=== PATIENT | female | born 1985 | race Two or more races ===

== ENCOUNTER 2017-07-04 19:27 | Inpatient (IN) | payer MEDICAID ==
[~2017-07-04] VITALS: Ht 152.4 cm; Wt 65.8 kg
[2017-07-04 19:30] VITALS: BP 108/65
[2017-07-04] MEDS: Acetaminophen 500mg (ES) tab ORAL ONE ×2 (19:49→19:53)
[2017-07-04 19:56] LABS: HEMATOCRIT 45.8 % (37.0-47.0); HEMOGLOBIN 15.1 G/DL (12.0-16.0); MEAN CORPUSCULAR VOLUME 87 FL (80-99); PLATELET COUNT 477 K/UL (150-450); RED BLOOD COUNT 5.29 M/UL (4.20-5.40); RED CELL DISTRIBUTION WIDTH 12.1 % (11.6-14.8)
[2017-07-04 20:00] LABS: WHITE BLOOD COUNT 25.5 K/UL (4.8-10.8)
[2017-07-04] MEDS ORDERED: Ketorolac 30mg Inj IV ONE (20:00)
[2017-07-04 20:07] LABS: ANION GAP 14 mmol/L (5-15); BLOOD UREA NITROGEN 9 mg/dL (7-18); CALCIUM 9.4 MG/DL (8.5-10.1); CARBON DIOXIDE 24 MMOL/L (21-32); CHLORIDE 98 MMOL/L (98-107); CREATININE 0.7 MG/DL (0.55-1.30); POTASSIUM 3.7 MMOL/L (3.5-5.1); SODIUM 136 MMOL/L (136-145)
[2017-07-04 20:12] LABS: ALANINE AMINOTRANSFERASE 26 U/L (12-78); ALBUMIN 4.2 G/DL (3.4-5.0); ALBUMIN/GLOBULIN RATIO 0.9 (1.0-2.7); ALKALINE PHOSPHATASE 92 U/L (46-116); ASPARTATE AMINO TRANSFERASE 12 U/L (15-37); BILIRUBIN,TOTAL 0.5 MG/DL (0.2-1.0)
[2017-07-04 20:30] VITALS: BP_SYST 105; BP_SYST 110; BP_DIAS 64; BP_DIAS 67
[2017-07-04 21:05] LABS: APPEARANCE,URINE CLEAR; BILIRUBIN, URINE NEGATIVE (NEGATIVE); COLOR,URINE PALE YELLOW; GLUCOSE, URINE (UA) NEGATIVE (NEGATIVE); KETONES,URINE 2+ (NEGATIVE); LEUKOCYTE ESTERASE ,URINE 1+ (NEGATIVE); NITRITE,URINE NEGATIVE (NEGATIVE); PH,URINE 9 (4.5-8.0); PROTEIN,URINE 1+ (NEGATIVE); UROBILINOGEN,URINE NORMAL MG/DL (0.0-1.0)
[2017-07-04 21:11] VITALS: BP 105/64
[2017-07-04] MEDS ORDERED: Azithromycin 500mg Inj IV ONE (21:21)
[2017-07-04] MEDS ORDERED: Acetaminophen 500mg (ES) tab ORAL ONE (21:30)
[2017-07-04] MEDS ORDERED: cefTRIAXone 1 GM in NS 55 ML IVPB ONE (21:30)
[2017-07-04] MEDS ORDERED: Azithromycin 500 MG in D5W 275 ML IVPB ONE (21:30)
--- NOTE | 2017-07-04 21:43 | Emergency Room Report ---
History of Present Illness General Chief Complaint: Flu Like Symptoms Source: Patient Present Illness HPI 31-year-old female presents to ED for evaluation. Patient brought in by EMS for weakness, passing out. Afebrile. States that she's been sick since yesterday. Sore throat, cough. Was seen by PMD today and was prescribed some medications. Pain is throbbing, 8 out of 10, nonradiating. Patient feels nauseous and has vomited several times. Denies chest pain or shortness of breath. Eyes cough. No other aggravating relieving factors. Denies any other associated symptoms Allergies: Coded Allergies: No Known Allergies (Unverified , 07/04/17) Patient History Past Medical History: none Past Surgical History: none Pertinent Family History: none Social History: Denies: smoking, alcohol use, drug use Last Menstrual Period: "last week" Now: No Immunizations: UTD Reviewed Nursing Documentation: PMH: Agreed; PSxH: Agreed Nursing Documentation-PMH Past Medical History: No Stated History Review of Systems All Other Systems: negative except mentioned in HPI Physical Exam Vital Signs Date Time Temp Pulse Resp B/P (MAP) Pulse Ox O2 Delivery O2 Flow Rate FiO2 07/04/17 19:20 101.3 112 22 110/67 98 Room Air 101.3 Sp02 EP Interpretation: reviewed, normal General Appearance: no apparent distress, alert, GCS 15, non-toxic Head: normocephalic, atraumatic Eyes: bilateral eye normal inspection, bilateral eye PERRL ENT: hearing grossly normal, normal voice, pharyngeal erythema, tonsillar exudate Neck: full range of motion, supple/symm/no masses Respiratory: chest non-tender, lungs clear, normal breath sounds, speaking full sentences Cardiovascular #1: regular rate, rhythm, no edema Cardiovascular #2: 2+ carotid (R), 2+ carotid (L), 2+ radial (R), 2+ radial (L) , 2+ dorsalis pedis (R), 2+ dorsalis pedis (L) Gastrointestinal: normal bowel sounds, non tender, soft, non-distended, no guarding, no rebound Rectal: deferred Genitourinary: normal inspection, no CVA tenderness Musculoskeletal: back normal, gait/station normal, normal range of motion, non- tender Neurologic: alert, oriented x3, responsive, motor strength/tone normal, sensory intact, speech normal Psychiatric: judgement/insight normal, memory normal, mood/affect normal, no suicidal/homicidal ideation Reflexes: 3+ bicep (R), 3+ bicep (L), 3+ tricep (R), 3+ tricep (L), 3+ knee (R) , 3+ knee (L) Skin: normal color, no rash, warm/dry, well hydrated Lymphatic: no adenopathy Medical Decision Making Diagnostic Impression: Primary Impression: Pharyngitis Qualified Codes: J02.9 - Acute pharyngitis, unspecified Additional Impressions: Weakness Sepsis Qualified Codes: A41.9 - Sepsis, unspecified organism ER Course Hospital Course 31-year-old female presenting to ED with generalized weakness, vomiting, fever Differential diagnoses include: Pneumonia, UTI, sepsis, dehydration, AL/ unstable angina Clinical course Patient placed on stretcher. On conveyor monitor with tachycardia. After initial history and physical, I ordered labs, IV fluids, chest x-ray, blood cultures, UA. Labs - electrolytes ok, marked leukocytosis, lactic 3 CXR - no acute process Influenza negative Source is likely the pharyngitis. Abx given. given 30cc/kg fluid bolus. Case discussed with Dr Sears and they agreed to admit patient to their service for further care and support I feel this is a highly complex case requiring extensive working including EKG/ Rhythm strip, Xray/CT/US, Blood/urine lab work, repeat exams while in ED, and administration of strong opiates/narcotics for pain control, admission to hospital or close patient follow up. Diagnosis - pharyngitis, sepsis, weakness Patient admitted to floor in serious condition Labs Test 07/04/17 19:35 07/04/17 20:50 White Blood Count 25.5 K/UL (4.8-10.8) Red Blood Count 5.29 M/UL (4.20-5.40) Hemoglobin 15.1 G/DL (12.0-16.0) Hematocrit 45.8 % (37.0-47.0) Mean Corpuscular Volume 87 FL (80-99) Mean Corpuscular Hemoglobin 28.6 PG (27.0-31.0) Mean Corpuscular Hemoglobin Concent 33.0 G/DL (32.0-36.0) Red Cell Distribution Width 12.1 % (11.6-14.8) Platelet Count 477 K/UL (150-450) Mean Platelet Volume 5.7 FL (6.5-10.1) Neutrophils (%) (Auto) % (45.0-75.0) Lymphocytes (%) (Auto) % (20.0-45.0) Monocytes (%) (Auto) % (1.0-10.0) Eosinophils (%) (Auto) % (0.0-3.0) Basophils (%) (Auto) % (0.0-2.0) Differential Total Cells Counted 100 Neutrophils % (Manual) 80 % (45-75) Lymphocytes % (Manual) 9 % (20-45) Monocytes % (Manual) 7 % (1-10) Eosinophils % (Manual) 0 % (0-3) Basophils % (Manual) 0 % (0-2) Band Neutrophils 4 % (0-8) Platelet Estimate Adequate Platelet Morphology Normal Red Blood Cell Morphology Normal Sodium Level 136 MMOL/L (136-145) Potassium Level 3.7 MMOL/L (3.5-5.1) Chloride Level 98 MMOL/L (98-107) Carbon Dioxide Level 24 MMOL/L (21-32) Anion Gap 14 mmol/L (5-15) Blood Urea Nitrogen 9 mg/dL (7-18) Creatinine 0.7 MG/DL (0.55-1.30) Estimat Glomerular Filtration Rate > 60 mL/min (>60) Glucose Level 127 MG/DL (74-106) Lactic Acid Level 3.00 mmol/L (0.66-2.22) 2.10 mmol/L (0.66-2.22) Calcium Level 9.4 MG/DL (8.5-10.1) Total Bilirubin 0.5 MG/DL (0.2-1.0) Aspartate Amino Transf (AST/SGOT) 12 U/L (15-37) Alanine Aminotransferase (ALT/SGPT) 26 U/L (12-78) Alkaline Phosphatase 92 U/L (46-116) Total Protein 8.8 G/DL (6.4-8.2) Albumin 4.2 G/DL (3.4-5.0) Globulin 4.6 g/dL Albumin/Globulin Ratio 0.9 (1.0-2.7) Urine Color Pale yellow Urine Appearance Clear Urine pH 9 (4.5-8.0) Urine Specific [place] 1.015 (1.005-1.035) Urine Protein 1+ (NEGATIVE) Urine Glucose (UA) Negative (NEGATIVE) Urine Ketones 2+ (NEGATIVE) Urine Occult Blood Negative (NEGATIVE) Urine Nitrite Negative (NEGATIVE) Urine Bilirubin Negative (NEGATIVE) Urine Urobilinogen Normal MG/DL (0.0-1.0) Urine Leukocyte Esterase 1+ (NEGATIVE) Urine RBC 2-4 /HPF (0 - 2) Urine WBC 5-10 /HPF (0 - 2) Urine Squamous Epithelial Cells Many /LPF (NONE/OCC) Urine Bacteria Few /HPF (NONE) Urine HCG, Qualitative Negative (NEGATIVE) Chest X-Ray Diagnostic Results Chest X-Ray Diagnostic Results : Chest X-Ray Ordered: Yes # of Views/Limited/Complete: 1 View Indication: Other - cough EP Interpretation: Yes Interpretation: no consolidation, no effusion, no pneumothorax, no acute cardiopulmonary disease Impression: No acute disease Electronically Signed by: Electronically signed by Alfonso Ba MD Last Vital Signs Date Time Temp Pulse Resp B/P (MAP) Pulse Ox O2 Delivery O2 Flow Rate FiO2 07/04/17 21:35 102.9 07/04/17 21:11 112 26 105/64 98 Room Air Status: improved Disposition: ADMITTED INPATIENT Condition: Serious Referrals: [facility],REFERRING (PCP) Alfonso Ba MD Jul 04, 2017 21:43
[2017-07-04 22:10] VITALS: BP 112/63
[2017-07-04 23:10] VITALS: BP 107/61
[2017-07-04 23:45] VITALS: BP 103/62
[2017-07-05] VITALS: BP 96/58
[2017-07-05] MEDS ORDERED: TAMIFLU75 MG ORAL (03:56)
[2017-07-05] MEDS ORDERED: PHENERGAN SUPP25 MG RECTAL (03:56)
[2017-07-05 04:00] VITALS: BP 120/80
[2017-07-05 08:00] VITALS: BP 120/67
--- NOTE | 2017-07-05 11:06 | Diagnostic Imaging Report ---
Indication: Cough, fever Technique: One view of the chest Comparison: none Findings: Lungs and pleural spaces are clear. Heart size is normal Impression: No acute process
[2017-07-05 11:41] VITALS: BP 115/55
[2017-07-05] MEDS ORDERED: Vancomycin 1250mg/D5W 250ml IVPB ONE (12:30)
--- NOTE | 2017-07-05 12:45 | History and Physical Report ---
DATE OF ADMISSION: 07/04/2017 NOTE: POOR AUDIO HISTORY OF PRESENT ILLNESS: The patient is a 31-year-old female recurrent abdominal pain and nausea and vomiting since this evening. The patient multiple times. She has had no fever or chills. The patient was taken to the emergency room where she had a fever about 100.6 degrees. The patient was given IV fluid, IV antibiotic, and Tylenol; was admitted to medical service; and is currently sleeping. is at bedside. PAST MEDICAL HISTORY: None. ALLERGIES: None. 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 test is negative. PHYSICAL EXAMINATION: VITAL SIGNS: Blood pressure 102/70, pulse 60s, and respirations 18. No fever. SKIN: Looks like little pallor. CHEST: Bilaterally clear. CARDIOVASCULAR: Regular rhythm. Tachycardia. ABDOMEN: Soft. Positive bowel sounds. EXTREMITIES: CCE. NEUROLOGICAL: The patient has no focal deficits. GENITOURINARY: Deferred. LABORATORY DATA: White counts are high. Urine shows positive leukocyte esterase and 4-6 wbc. ASSESSMENT: 1. Recurrent nausea and vomiting. 2. Urinary tract infection. 3. Dehydration. PLAN: We will admit her on the medical floor. Start IV fluid and IV antibiotics. Check cultures and discussed with . Also give her Tylenol for pain. Lui Sears M.D. DR: MUSA JOB#: [id number] CC:
[2017-07-05] MEDS: traMADol 50mg tab ORAL PRN ×2 (14:01→18:32)
--- NOTE | 2017-07-05 14:06 | Infectious Diseases Prog Note ---
Assessment/Plan Problems: (1) Acute bacterial tonsillitis Assessment & Plan: on the right with whitish exudate , and possible lois tonsillar abscess, will start vancomycin and zosyn empiric coverage , obtain swab culture from the right tonsil exudate, and obtain CT neck to confirm (2) Peritonsillar abscess Assessment & Plan: possibly due to the above, jaya start wide spectrum antibiotics with vancomycin and zosyn and order CT neck for further evaluation (3) Sepsis Assessment & Plan: due to the above , will send blood culture and start wide spectrum antibiotics pending cultures results . Subjective Allergies: Coded Allergies: No Known Allergies (Unverified , 07/04/17) Objective Vital Signs Last 24 Hour Vital Signs Date Time Temp Pulse Resp B/P (MAP) Pulse Ox O2 Delivery O2 Flow Rate FiO2 07/05/17 11:41 99.1 98 18 115/55 98 Room Air 99.1 07/05/17 10:17 102.7 07/05/17 09:18 102.7 07/05/17 08:00 98.4 110 18 120/67 100 Room Air 98.4 07/05/17 04:00 101.0 117 18 120/80 97 Room Air 101.0 07/05/17 00:00 98.1 92 24 103/62 97 Room Air 98.1 07/05/17 00:00 97.4 99 18 96/58 97 Room Air 97.4 07/04/17 23:45 98.1 92 24 103/62 97 Room Air 98.1 07/04/17 23:10 99.1 99 22 107/61 99 Room Air 99.1 07/04/17 22:34 99.8 07/04/17 22:10 99.8 102 22 112/63 98 Room Air 99.8 07/04/17 21:35 102.9 07/04/17 21:11 102.9 112 26 105/64 98 Room Air 102.9 07/04/17 20:39 102.9 07/04/17 20:30 112 22 Room Air 07/04/17 20:30 100.9 118 22 105/64 98 Room Air 100.9 07/04/17 19:59 100.1 07/04/17 19:30 100.1 112 26 108/65 97 Room Air 100.1 07/04/17 19:20 101.3 112 22 110/67 98 Room Air 101.3 Height (Feet): 5 Height (Inches): 0.00 Weight (Pounds): 145 Microbiology Date/Time Source Procedure Growth Status 07/04/17 19:35 Nasal Nares Influenza Types A,B Antigen (SALTY) - Final Complete Laboratory Tests Test 07/04/17 19:35 07/04/17 20:50 White Blood Count 25.5 K/UL (4.8-10.8) *H Red Blood Count 5.29 M/UL (4.20-5.40) Hemoglobin 15.1 G/DL (12.0-16.0) Hematocrit 45.8 % (37.0-47.0) Mean Corpuscular Volume 87 FL (80-99) Mean Corpuscular Hemoglobin 28.6 PG (27.0-31.0) Mean Corpuscular Hemoglobin Concent 33.0 G/DL (32.0-36.0) Red Cell Distribution Width 12.1 % (11.6-14.8) Platelet Count 477 K/UL (150-450) H Mean Platelet Volume 5.7 FL (6.5-10.1) L Neutrophils (%) (Auto) % (45.0-75.0) Lymphocytes (%) (Auto) % (20.0-45.0) Monocytes (%) (Auto) % (1.0-10.0) Eosinophils (%) (Auto) % (0.0-3.0) Basophils (%) (Auto) % (0.0-2.0) Differential Total Cells Counted 100 Neutrophils % (Manual) 80 % (45-75) H Lymphocytes % (Manual) 9 % (20-45) L Monocytes % (Manual) 7 % (1-10) Eosinophils % (Manual) 0 % (0-3) Basophils % (Manual) 0 % (0-2) Band Neutrophils 4 % (0-8) Platelet Estimate Adequate Platelet Morphology Normal Red Blood Cell Morphology Normal Sodium Level 136 MMOL/L (136-145) Potassium Level 3.7 MMOL/L (3.5-5.1) Chloride Level 98 MMOL/L (98-107) Carbon Dioxide Level 24 MMOL/L (21-32) Anion Gap 14 mmol/L (5-15) Blood Urea Nitrogen 9 mg/dL (7-18) Creatinine 0.7 MG/DL (0.55-1.30) Estimat Glomerular Filtration Rate > 60 mL/min (>60) Glucose Level 127 MG/DL (74-106) H Lactic Acid Level 3.00 mmol/L (0.66-2.22) H 2.10 mmol/L (0.66-2.22) Calcium Level 9.4 MG/DL (8.5-10.1) Total Bilirubin 0.5 MG/DL (0.2-1.0) Aspartate Amino Transf (AST/SGOT) 12 U/L (15-37) L Alanine Aminotransferase (ALT/SGPT) 26 U/L (12-78) Alkaline Phosphatase 92 U/L (46-116) Total Protein 8.8 G/DL (6.4-8.2) H Albumin 4.2 G/DL (3.4-5.0) Globulin 4.6 g/dL Albumin/Globulin Ratio 0.9 (1.0-2.7) L Monoscreen Pending Urine Color Pale yellow Urine Appearance Clear Urine pH 9 (4.5-8.0) Urine Specific [place] 1.015 (1.005-1.035) Urine Protein 1+ (NEGATIVE) H Urine Glucose (UA) Negative (NEGATIVE) Urine Ketones 2+ (NEGATIVE) H Urine Occult Blood Negative (NEGATIVE) Urine Nitrite Negative (NEGATIVE) Urine Bilirubin Negative (NEGATIVE) Urine Urobilinogen Normal MG/DL (0.0-1.0) Urine Leukocyte Esterase 1+ (NEGATIVE) H Urine RBC 2-4 /HPF (0 - 2) H Urine WBC 5-10 /HPF (0 - 2) H Urine Squamous Epithelial Cells Many /LPF (NONE/OCC) H Urine Bacteria Few /HPF (NONE) Urine HCG, Qualitative Negative (NEGATIVE) Current Medications Medications (Trade) Dose Ordered Sig/Jannet Route PRN Reason Start Time Stop Time Status Last Admin Dose Admin Acetaminophen (Tylenol) 650 mg Q4H PRN ORAL Mild Pain/Temp > 100.5 07/05/17 00:15 08/04/17 00:14 07/05/17 09:18 Ondansetron HCl (Zofran) 4 mg Q6H PRN IVP Nausea & Vomiting 07/05/17 00:15 08/04/17 00:14 07/05/17 09:12 Piperacillin Sod/ Tazobactam Sod 3.375 gm/Dextrose 110 ml @ 27.5 mls/hr EVERY 8 HOURS IVPB 07/05/17 14:00 07/10/17 13:59 Sodium Chloride 1,000 ml @ 75 mls/hr [id number] IV 07/05/17 00:15 08/04/17 00:14 07/05/17 00:56 Tramadol HCl (Ultram) 50 mg Q4H PRN ORAL Pain(Pain Scale 4-10) 07/05/17 13:45 07/12/17 13:44 07/05/17 14:01 Vancomycin HCl (Vanco rx to dose) 1 ea DAILYPRN PRN MISC Per rx protocol 07/05/17 11:30 08/04/17 11:29 Vancomycin HCl 1 gm/Dextrose 275 ml @ 183.708 mls/hr Q12H IVPB 07/05/17 23:00 07/10/17 22:59 Kannan Abdi M.D. Jul 05, 2017 14:06
[2017-07-05] MEDS: Piperacillin/Tazobactam 3.375 GM in D5W 110 ML IVPB SCH ×2 (15:32→21:53)
[2017-07-05 16:00] VITALS: BP 124/75
--- NOTE | 2017-07-05 16:20 | Diagnostic Imaging Report ---
Indication: Reason For Exam: ABSCESS Technique: IV administration nonionic contrast. Spiral acquisitions obtained through the Multiplanar reconstructions were generated. Total dose length product 579.54 mGycm. CTDIvol(s) 20.06 mGy. Radiation dose was minimized using automated exposure control Comparison: none Findings: The adenoids are prominent, symmetric. The tonsils are diffusely markedly hypertrophied, slightly larger on the right than on the left. No focal low attenuation to suggest abscess demonstrated. The nasopharynx and oropharynx are otherwise unremarkable. The hypopharynx is unremarkable. The larynx is unremarkable. The trachea and proximal bronchi are unremarkable. No prevertebral soft tissue swelling. Cervical nodes are numerous and prominent bilaterally, with the left jugulodigastric node measuring up to 3 cm long axis dimension and a right posterior triangle node likewise measuring up to 3 cm long axis dimension, as well as numerous smaller but quite prominent nodes in the anterior and posterior triangles. The salivary glands are unremarkable. No significant subcutaneous fat infiltration is demonstrated. There is mucosal thickening of the right maxillary sinus. The parapharyngeal spaces are symmetric and clear. There are multiple dental caries. The bones are intact. The thyroid is unremarkable. The included upper lungs are unremarkable. The upper mediastinum is unremarkable. The proximal esophagus is unremarkable. No axillary or supraclavicular mass or adenopathy demonstrated Impression: Diffusely prominent adenoids and tonsils, most likely reactive. Correlate with any history of active inflammation. Numerous nonspecific bilateral prominent numerous lymph nodes, a few of which reach size criteria for lymphadenopathy. Likewise most likely reactive in nature. Correlate with clinical findings No evidence of cervical abscess Right maxillary sinus disease Dental disease, with multiple dental caries The CT scanner at [facility] is accredited by the [employer] and the scans are performed using protocols designed to limit radiation exposure to as low as reasonably achievable to attain images of sufficient resolution adequate for diagnostic evaluation.
[2017-07-05 20:00] VITALS: BP 89/57
--- NOTE | 2017-07-05 21:15 | Consultation ---
DATE OF CONSULTATION: 07/05/2017 INFECTIOUS DISEASES CONSULTATION CONSULTING PHYSICIAN: Kannan Abdi M.D. REQUESTING PHYSICIAN: Bird Roman M.D. REASON FOR CONSULTATION: Sepsis, fever and leukocytosis with unclear source. Recommendation for antibiotics treatment and further evaluation. HISTORY OF PRESENT ILLNESS: The patient is a 31-year-old female with no significant past medical history who was brought into the emergency room at [facility] by her for weakness, fever and passing out. The patient has been sick with sore throat for the last couple of days. She was coughing, some phlegm. She was seen by primary care physician today and was given some medications, unclear whether she had antibiotics or not, but continued to have worsening symptom of throbbing pain in her throat and cough. She also had nausea and vomiting. No chest pain or shortness of breath. No recent travel or sick contact except her son who is a year and 3-month-old was sick recently and she became sick after he was recovered. In the emergency room, the patient had a chest x-ray, did not show any acute infiltrates. She had temperature of 101.3 degrees. The patient was started on levofloxacin and admitted to the hospital for further evaluation and management. She continued to spike fever up to 102 degrees. So, Infectious Disease consultation was requested for further evaluation and management. As of note, the patient is [place] speaker, could not provide history. History was mainly obtained by the nurse who translated at the bedside. PAST MEDICAL HISTORY: Negative. PAST SURGICAL HISTORY: Negative. MEDICATIONS: She is on levofloxacin. For the rest of her medications, please refer to MAR. ALLERGIES: No known drug allergy. FAMILY HISTORY: Negative for any recurrent infection or immunocompromised condition. 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 No recent drugs, tobacco, or alcohol. REVIEW OF SYSTEMS: A 14-point of system reviewed were all negative apart from the one I mentioned above in my History and Physical. PHYSICAL EXAMINATION: GENERAL: A young female, lying in bed, weak, lethargic, febrile, has been at the bedside. VITAL SIGNS: Temperature 102.7 degrees, pulse 98, respirations 18, blood pressure 115/55, and saturation 98% on room air. HEENT: Normocephalic and atraumatic. Pupils are reactive to light equally. Pale sclerae. Dry oral mucosa. Right enlarged erythematous tonsils with whitish exudate membrane. No oral ulcers. No thrush. NECK: Supple. No lymphadenopathy. CARDIOVASCULAR: She is tachycardic. S1 and S2 normal. No murmur or gallop. LUNGS: Clear bilaterally. No wheezing or rhonchi. Normal breathing efforts. ABDOMEN: Soft, nontender, and nondistended. Positive bowel sounds. No hepatosplenomegaly. No ascites. EXTREMITIES: No edema. No cyanosis. SKIN: No rash. No hives. No ulceration. LABORATORY AND DIAGNOSTIC DATA: Labs showed white count of 25.5, hemoglobin of 15.1, and platelet count of 477. BUN of 9 and creatinine of 0.7. AST of 12 and ALT of 26. Urinalysis showed +1 leukocyte esterase, wbc's 5 to 10, and many squamous cell. Microbiology, influenza screening A and B were both negative. Imaging, chest x-ray showed lungs and pleural spaces are clear. Heart size is normal, no acute process. ASSESSMENT AND RECOMMENDATION: 1. Acute bacterial tonsillitis with whitish exudate and possible peritonsillar abscess. We will start vancomycin and Zosyn empiric coverage for now. Obtain swab culture from the right tonsil and CT scan of the neck with contrast to rule out abscess. We will call ENT if needed. 2. Peritonsillar abscess, possibly due to the above. We will start wide-spectrum antibiotics and order CT neck with contrast for further evaluation. ENT consult will be recommended if there is any evidence of abscess. 3. Sepsis due to the above. We will send blood culture. Start vancomycin and Zosyn. Pending culture results. 4. UTI. We will send urine culture. The patient will be already on Zosyn. Thank you for the consult. ID will continue to follow. Please feel free to call with any questions. Kannan Abdi M.D. DR: VALDEZ JOB#: [id number] CC:
[2017-07-05] MEDS: Vancomycin 1gm/D5W 275ml IVPB SCH ×2 (23:35)
[2017-07-06] VITALS: BP 90/52
--- NOTE | 2017-07-06 02:16 | History and Physical Report ---
DATE OF ADMISSION: 07/04/2017 HISTORY OF PRESENT ILLNESS: The patient is a 31 years old female, came in last night for having abdominal pain, nausea, and vomiting, was found to have urinary tract infection. The patient had a fever of 100.7. ID consult was obtained. The patient currently is tolerating some diet. PAST MEDICAL HISTORY: None. ALLERGIES: NKA. MEDICATIONS: See the list. PHYSICAL EXAMINATION: GENERAL: This is a young female, who is currently awake, still feeling sick. VITAL SIGNS: Blood pressure is 130/70, pulse 60, respirations 18, no fever. SKIN: Good skin turgor. CHEST: Bilaterally clear. CARDIOVASCULAR: Regular rhythm. No gallop. No murmur. ABDOMEN: Soft. Mild tenderness. EXTREMITIES: CCE. ASSESSMENT: 1. Urinary tract infection. 2. Recurrent nausea and vomiting. 3. Dehydration. PLAN: 1. We will admit her on medical floor. 2. Continue IV antibiotics. 3. Continue Zofran. 4. Continue antibiotics. 5. ID consult. Lui Sears M.D. DR: Althea JOB#: [id number] CC:
[2017-07-06 04:00] VITALS: BP 92/63
[2017-07-06] MEDS: Piperacillin/Tazobactam 3.375 GM in D5W 110 ML IVPB SCH ×3 (05:30→23:38)
[2017-07-06] MEDS: traMADol 50mg tab ORAL PRN (06:36)
[2017-07-06 08:00] VITALS: BP 111/71
[2017-07-06] MEDS: Vancomycin 1gm/D5W 275ml IVPB SCH ×2 (11:30)
[2017-07-06 12:00] VITALS: BP 114/65
[2017-07-06 16:00] VITALS: BP 100/51
[2017-07-06 20:00] VITALS: BP 110/64
--- NOTE | 2017-07-06 20:37 | Infectious Diseases Prog Note ---
Assessment/Plan Problems: (1) Acute bacterial tonsillitis Assessment & Plan: on the right with whitish exudate , no evidence of lois tonsillar abscess on neck CT , continue vancomycin and zosyn empiric coverage , pending swab culture from the right tonsil exudate (2) Peritonsillar abscess Assessment & Plan: ruled out with negaitve CT neck , already on wide spectrum antibiotics with vancomycin and zosyn (3) Sepsis Assessment & Plan: due to the above , await blood culture and continue wide spectrum antibiotics pending cultures results . Subjective Constitutional: Reports: no symptoms HEENT: Reports: dysphagia, congestion, other - right enlarged tonsil Respiratory: Reports: no symptoms Breasts: Reports: no symptoms Cardiovascular: Reports: no symptoms Gastrointestinal/Abdominal: Reports: no symptoms Genitourinary: Reports: no symptoms Neurologic: Reports: no symptoms Psychiatric: Reports: no symptoms Skin: Reports: no symptoms Endocrine: Reports: no symptoms Hematologic: Reports: no symptoms Musculoskeletal: Reports: no symptoms Allergies: Coded Allergies: No Known Allergies (Unverified , 07/04/17) Objective Vital Signs Last 24 Hour Vital Signs Date Time Temp Pulse Resp B/P (MAP) Pulse Ox O2 Delivery O2 Flow Rate FiO2 07/06/17 20:00 98.7 57 21 110/64 99 98.7 07/06/17 16:00 98.1 68 21 100/51 99 98.1 07/06/17 12:00 97.6 58 21 114/65 99 97.6 07/06/17 08:00 98.4 69 21 111/71 99 98.4 07/06/17 04:00 97.1 66 21 92/63 99 97.1 07/06/17 00:00 98.2 87 18 90/52 98 Room Air 98.2 Height (Feet): 5 Height (Inches): 0.00 Weight (Pounds): 145 General Appearance: WD/WN, no acute distress HEENT: normocephalic, atraumatic, anicteric, mucous membranes moist, PERRL, tonsils swollen, other - right tonsil whitish exudate Respiratory/Chest: chest wall non-tender, lungs clear, normal breath sounds, no respiratory distress, no accessory muscle use Cardiovascular: normal peripheral pulses, normal rate, regular rhythm, no gallop/murmur, no JVD Abdomen: normal bowel sounds, soft, non tender, no organomegaly, non distended , no mass, no scars Genitourinary: normal external genitalia Extremities: no cyanosis, no clubbing Skin: no rash, no lesions, no ulcers Neurologic/Psychiatric: alert, oriented x 3, responsive Microbiology Date/Time Source Procedure Growth Status 07/04/17 20:50 Blood Blood Culture - Preliminary NO GROWTH AFTER 24 HOURS Resulted 07/04/17 20:35 Blood Blood Culture - Preliminary NO GROWTH AFTER 24 HOURS Resulted 07/04/17 19:35 Nasal Nares Influenza Types A,B Antigen (SALTY) - Final Complete 07/05/17 16:00 Urine,Clean Catch Urine Culture - Preliminary NO GROWTH Resulted Current Medications Medications (Trade) Dose Ordered Sig/Jannet Route PRN Reason Start Time Stop Time Status Last Admin Dose Admin Acetaminophen (Tylenol) 650 mg Q4H PRN ORAL Mild Pain/Temp > 100.5 07/05/17 00:15 08/04/17 00:14 07/05/17 21:53 Ondansetron HCl (Zofran) 4 mg Q6H PRN IVP Nausea & Vomiting 07/05/17 00:15 08/04/17 00:14 07/05/17 09:12 Piperacillin Sod/ Tazobactam Sod 3.375 gm/Dextrose 110 ml @ 27.5 mls/hr EVERY 8 HOURS IVPB 07/05/17 14:00 07/10/17 13:59 07/06/17 15:40 Sodium Chloride 1,000 ml @ 75 mls/hr [id number] IV 07/05/17 00:15 08/04/17 00:14 07/06/17 16:28 Tramadol HCl (Ultram) 50 mg Q4H PRN ORAL Pain(Pain Scale 4-10) 07/05/17 13:45 07/12/17 13:44 07/06/17 06:36 Vancomycin HCl (Vanco rx to dose) 1 ea DAILYPRN PRN MISC Per rx protocol 07/05/17 11:30 08/04/17 11:29 Vancomycin HCl 1 gm/Dextrose 275 ml @ 183.708 mls/hr Q12H IVPB 07/05/17 23:00 07/10/17 22:59 07/06/17 11:30 Kannan Abdi M.D. Jul 06, 2017 20:37
[2017-07-06 23:37] LABS: ANION GAP 10 mmol/L (5-15); BLOOD UREA NITROGEN 15 mg/dL (7-18); CALCIUM 8.4 MG/DL (8.5-10.1); CARBON DIOXIDE 27 MMOL/L (21-32); CHLORIDE 104 MMOL/L (98-107); CREATININE 1.3 MG/DL (0.55-1.30); POTASSIUM 3.4 MMOL/L (3.5-5.1); SODIUM 141 MMOL/L (136-145)
[2017-07-07] VITALS: BP 111/73
[2017-07-07] MEDS ORDERED: Vancomycin 1250mg/D5W 250ml 250 ML IVPB SCH (01:00)
--- NOTE | 2017-07-07 03:45 | Progress Note ---
DATE: 07/06/2017 NOTE: POOR AUDIO SUBJECTIVE: This is a 31-year-old female, who is still complaining of some nausea, vomiting, and sore throat. No fever. No chills. . OBJECTIVE: CHEST: Bilateral few crackles. CARDIOVASCULAR: Regular rhythm. ABDOMEN: Soft. Positive bowel sounds. Nontender. EXTREMITIES: CCE. ASSESSMENT: 1. Urinary tract infection. 2. Acute bronchitis. PLAN: 1. Continue antibiotics. 2. Consider ID consult. 3. Lui Sears M.D. DR: HERACLIO JOB#: [id number] CC:
[2017-07-07 04:00] VITALS: BP 94/56
[2017-07-07] MEDS: Piperacillin/Tazobactam 3.375 GM in D5W 110 ML IVPB SCH ×2 (05:44→14:05)
[2017-07-07 08:00] VITALS: BP 103/64
[2017-07-07 12:00] VITALS: BP 121/68
[2017-07-07 12:32] LABS: ANION GAP 8 mmol/L (5-15); BLOOD UREA NITROGEN 17 mg/dL (7-18); CALCIUM 8.3 MG/DL (8.5-10.1); CARBON DIOXIDE 30 MMOL/L (21-32); CHLORIDE 107 MMOL/L (98-107); CREATININE 1.4 MG/DL (0.55-1.30); POTASSIUM 3.4 MMOL/L (3.5-5.1); SODIUM 145 MMOL/L (136-145)
[2017-07-07 12:45] LABS: BASOPHILS % (AUTO) 0.4 % (0.0-2.0); HEMATOCRIT 40.1 % (37.0-47.0); HEMOGLOBIN 13.1 G/DL (12.0-16.0); LYMPHOCYTES % (AUTO) 14.5 % (20.0-45.0); MEAN CORPUSCULAR VOLUME 87 FL (80-99); MONOCYTES % (AUTO) 11.8 % (1.0-10.0); NEUTROPHILS % (AUTO) 72.3 % (45.0-75.0); PLATELET COUNT 433 K/UL (150-450); RED BLOOD COUNT 4.62 M/UL (4.20-5.40); RED CELL DISTRIBUTION WIDTH 12.3 % (11.6-14.8); WHITE BLOOD COUNT 13.6 K/UL (4.8-10.8)
--- NOTE | 2017-07-07 14:47 | Infectious Diseases Prog Note ---
Assessment/Plan Problems: (1) Acute bacterial tonsillitis Assessment & Plan: on both side worse on the right with whitish exudate , and no evidence of lois tonsillar abscess on neck CT , will stop vancomycin and switch zosyn to unasyn empiric coverage , pending swab culture from the right tonsil exudate (2) Peritonsillar abscess Assessment & Plan: ruled out with negaitve CT neck , already on wide spectrum antibiotics with unasyn (3) Sepsis Assessment & Plan: due to the above , await blood culture and continue wide spectrum antibiotics pending cultures results . (4) IRIS (acute kidney injury) Assessment & Plan: suspect dehydration related and sepsis , will stop vancomycin, continue to dose meds as per pharmacy recommendations Subjective Constitutional: Reports: no symptoms HEENT: Reports: no symptoms Respiratory: Reports: no symptoms Breasts: Reports: no symptoms Cardiovascular: Reports: no symptoms Gastrointestinal/Abdominal: Reports: no symptoms Genitourinary: Reports: no symptoms Neurologic: Reports: no symptoms Psychiatric: Reports: no symptoms Skin: Reports: ulcer Endocrine: Reports: no symptoms Hematologic: Reports: no symptoms Musculoskeletal: Reports: no symptoms Allergies: Coded Allergies: No Known Allergies (Unverified , 07/04/17) Objective Vital Signs Last 24 Hour Vital Signs Date Time Temp Pulse Resp B/P (MAP) Pulse Ox O2 Delivery O2 Flow Rate FiO2 07/07/17 12:00 97.4 18 18 121/68 100 Room Air 97.4 07/07/17 08:00 98.2 72 16 103/64 99 Room Air 98.2 07/07/17 04:00 98.6 58 18 94/56 98 Room Air 98.6 07/07/17 00:00 98.9 67 21 111/73 98 98.9 07/07/17 00:00 Room Air 07/06/17 20:00 98.7 57 21 110/64 99 98.7 07/06/17 20:00 Room Air 07/06/17 16:00 98.1 68 21 100/51 99 98.1 Height (Feet): 5 Height (Inches): 0.00 Weight (Pounds): 145 General Appearance: WD/WN, no acute distress HEENT: normocephalic, atraumatic, anicteric, mucous membranes moist, EOMI, pharynx normal, supple, no JVD, tonsils swollen, other - red congested tonsills Respiratory/Chest: chest wall non-tender, lungs clear, normal breath sounds, no respiratory distress, no accessory muscle use Cardiovascular: normal peripheral pulses, normal rate, regular rhythm, no gallop/murmur, no JVD Abdomen: normal bowel sounds, soft, non tender, no organomegaly, non distended , no mass, no scars Extremities: no cyanosis, no clubbing Skin: no rash, no lesions Neurologic/Psychiatric: alert, oriented x 3, responsive Lymphatic: no neck adenopathy, no groin adenopathy Microbiology Date/Time Source Procedure Growth Status 07/04/17 20:50 Blood Blood Culture - Preliminary NO GROWTH AFTER 48 HOURS Resulted 07/04/17 20:35 Blood Blood Culture - Preliminary NO GROWTH AFTER 48 HOURS Resulted 07/04/17 19:35 Nasal Nares Influenza Types A,B Antigen (SALTY) - Final Complete 07/05/17 16:00 Urine,Clean Catch Urine Culture - Final NO GROWTH AFTER 48 HOURS Complete Laboratory Tests Test 07/06/17 23:15 07/07/17 12:00 Sodium Level 141 MMOL/L (136-145) 145 MMOL/L (136-145) Potassium Level 3.4 MMOL/L (3.5-5.1) L 3.4 MMOL/L (3.5-5.1) L Chloride Level 104 MMOL/L (98-107) 107 MMOL/L (98-107) Carbon Dioxide Level 27 MMOL/L (21-32) 30 MMOL/L (21-32) Anion Gap 10 mmol/L (5-15) 8 mmol/L (5-15) Blood Urea Nitrogen 15 mg/dL (7-18) 17 mg/dL (7-18) Creatinine 1.3 MG/DL (0.55-1.30) 1.4 MG/DL (0.55-1.30) H Estimat Glomerular Filtration Rate 47.8 mL/min (>60) 43.9 mL/min (>60) Glucose Level 103 MG/DL (74-106) 89 MG/DL (74-106) Calcium Level 8.4 MG/DL (8.5-10.1) L 8.3 MG/DL (8.5-10.1) L Vancomycin Level Trough 11.4 ug/mL (5.0-12.0) White Blood Count 13.6 K/UL (4.8-10.8) H Red Blood Count 4.62 M/UL (4.20-5.40) Hemoglobin 13.1 G/DL (12.0-16.0) Hematocrit 40.1 % (37.0-47.0) Mean Corpuscular Volume 87 FL (80-99) Mean Corpuscular Hemoglobin 28.3 PG (27.0-31.0) Mean Corpuscular Hemoglobin Concent 32.7 G/DL (32.0-36.0) Red Cell Distribution Width 12.3 % (11.6-14.8) Platelet Count 433 K/UL (150-450) Mean Platelet Volume 6.0 FL (6.5-10.1) L Neutrophils (%) (Auto) 72.3 % (45.0-75.0) Lymphocytes (%) (Auto) 14.5 % (20.0-45.0) L Monocytes (%) (Auto) 11.8 % (1.0-10.0) H Eosinophils (%) (Auto) 1.0 % (0.0-3.0) Basophils (%) (Auto) 0.4 % (0.0-2.0) Current Medications Medications (Trade) Dose Ordered Sig/Jannet Route PRN Reason Start Time Stop Time Status Last Admin Dose Admin Acetaminophen (Tylenol) 650 mg Q4H PRN ORAL Mild Pain/Temp > 100.5 07/05/17 00:15 08/04/17 00:14 07/05/17 21:53 Ondansetron HCl (Zofran) 4 mg Q6H PRN IVP Nausea & Vomiting 07/05/17 00:15 08/04/17 00:14 07/07/17 12:53 Piperacillin Sod/ Tazobactam Sod 3.375 gm/Dextrose 110 ml @ 27.5 mls/hr EVERY 8 HOURS IVPB 07/05/17 14:00 07/10/17 13:59 07/07/17 14:05 Sodium Chloride 1,000 ml @ 75 mls/hr [id number] IV 07/05/17 00:15 08/04/17 00:14 07/07/17 05:44 Tramadol HCl (Ultram) 50 mg Q4H PRN ORAL Pain(Pain Scale 4-10) 07/05/17 13:45 07/12/17 13:44 07/06/17 06:36 Kannan Abdi M.D. Jul 07, 2017 14:47
[2017-07-07 16:00] VITALS: BP 106/71
[2017-07-07] MEDS: Ampicillin/Sulbactam Sod 3 GM in NS 110 ML IVPB SCH (17:55)
[2017-07-07 20:00] VITALS: BP 124/76
--- NOTE | 2017-07-07 22:30 | Progress Note ---
DATE: 07/07/2017 SUBJECTIVE: This is a 31-year-old female, who was admitted for sepsis, UTI, dehydration, and sore throat. The patient's blood cultures were positive. ID consult was obtained. The patient is still having little bit sore throat, but improving. Cough is better. OBJECTIVE: GENERAL: The patient has no fever. CHEST: Bilaterally few crackles. CARDIOVASCULAR: Irregular rhythm. ABDOMEN: Soft. EXTREMITIES: No swelling. ASSESSMENT AND PLAN: 1. Acute bronchitis. 2. Urinary tract infection. 3. Bacteremia. We will continue IV antibiotics. ID is on case. The patient was switched to ampicillin IV. White counts are 13,000. Continue current treatment. Lui Sears M.D. DR: Xuan JOB#: [id number] CC:
[2017-07-08] VITALS: BP 100/50
[2017-07-08] MEDS: Ampicillin/Sulbactam Sod 3 GM in NS 110 ML IVPB SCH ×2 (00:19→05:36)
[2017-07-08 04:00] VITALS: BP 115/68
[2017-07-08 08:00] VITALS: BP 95/59
[2017-07-08] MEDS ORDERED: AMPICILLIN SOD500 MG PO (10:13)
[2017-07-08] MEDS ORDERED: AMPICILLIN TRI500 MG ORAL (10:17)
[2017-07-08] MEDS ORDERED: NS 275ml ONE (11:29)
[2017-07-08] MEDS ORDERED: 1/2 NS 1000ml IV ONE (11:29)
[2017-07-08] MEDS ORDERED: Tubing IV Secondary IV ONE (11:29)
--- NOTE | 2017-07-09 04:30 | Discharge Summary ---
ROOM NUMBER: [id number]. BED: 1. REASON FOR ADMISSION: Fever, sepsis, bronchitis, UTI, and sore throat. This is a young female, who was admitted for sepsis, possible acute bronchitis, and pneumonia as well as UTI. The patient was admitted in our hospital. She was given IV antibiotics for five days. ID consult was obtained. The patient is clinically improving. She is tolerating diet and sore throat has improved. Her shortness of breath is also improving. PHYSICAL EXAMINATION: VITAL SIGNS: Stable. CHEST: Bilateral few crackles. CARDIOVASCULAR: Regular rhythm. No gallop. No murmur. ABDOMEN: Soft. Positive bowel sounds. Nontender. EXTREMITIES: No swelling. GENITOURINARY: Deferred. LABORATORY DATA: No labs done today. ASSESSMENT AND PLAN: 1. Bacteremia. 2. Possible pneumonia. 3. Acute sore throat. 4. Urinary tract infection. 5. Nausea and vomiting, it resolved. The patient is tolerating diet. We will continue the patient's Unasyn. We will switch her p.o. ampicillin. Discharge plan tomorrow. Follow up with primary care physician in one week and the patient was recommended if there are any problems, she is to come back to the emergency room and currently the patient ____ tolerate whatever the diet she is on ____ as tolerated. DISCHARGE MEDICATIONS: Ampicillin 500 mg q.6 h. for five days. FOLLOW UP: Followup with PCP. Lui Sears M.D. DR: HERACLIO JOB#: [id number] CC:
--- NOTE | 2017-07-09 10:53 | Discharge Summary ---
Discharge Summary Discharge Summary Discharge Summary DATE OF ADMISSION: 07/04/2017 DATE OF DISCHARGE: 07/08/2017 REASON FOR ADMISSION: 31 years old female without any significant past medical history presented to emergency room for evaluation. Patient reported generalized weakness, passing out , sore throat , intermittent dry cough. Patient felt nauseous and vomited few times. She denied chest pain or shortness of breath. Upon evaluation in emergency room WBC -25.5, lactic acid- 3.0, tachycardic, tachypneic, febrile, highest fever-102.7. Chest x-ray revealed no acute cardiopulmonary pathology. Influenza screen test was negative. Urine test negative. Patient was admitted with diagnoses of sepsis, pharyngitis, generalized weakness. HOSPITAL COURSE: Patient admitted to the floor. Patient was started on intravenous hydration. ID consult was requested. Patient was started on empiric antibiotics. Blood culture were negative, urine culture was negative. Patient initially was suspected to have a peritonsillar abscess. Patient undergone CT of the neck which revealed diffusely prominent adenoids and tonsils, most likely reactive. Numerous nonspecific bilateral prominent lymph nodes. Few reached size criteria for lymphadenopathy. No evidence of cervical abscess. Patient was treated with antibiotics as per ID specialist directions. ID closely followed. Monospot was negative. Diet was slowly introduced , antiemetic provided as needed. Patient was able to tolerate diet. Patient clinically improved, leukocytosis down to 13.6, fever resolved. No further tachycardia or tachypnea. Patient was stable for discharge home on oral antibiotics to complete the course as recommended by ID specialist. FINAL DIAGNOSES: 1. Sepsis. 2. Acute bacterial tonsillitis. 3. Possible peritoneal abscess, was ruled out 4. Nausea and vomiting- resolved DISCHARGE MEDICATIONS: See Medication Reconciliation list. DISCHARGE INSTRUCTIONS: Patient was discharged home. Follow up with primary care provider in one week. Patient was instructed on ED precautions. I have been assigned to dictate discharge summary for this account. I was not involved in the patient's management. Najma Dove NP ([place]) Jul 09, 2017 10:53
--- NOTE | 2017-07-10 12:46 | General Progress Note ---
Progress Note Progress Note patient was discharged by Dr Sears and she was given prescription for ampicillin for five days only, patient was not able to fill the prescription which was written by Dr Sears since it was not signed. I was notified today 07/10 by the nurse on the medical floor about the ampicillin prescription which the patient was not able to fill, so I wrote a new prescription for augmantin 875/125 mg for 10 days , and I gave it to the nurse so she can call the patient and have her fill the new prescription . D/W the charge nurse on the medical floor . Kannan Abdi M.D. Jul 10, 2017 12:46
== END 2017-07-08 11:30 | disposition home or self-care (01) | DRG 720 ==
LOC: EDBD 19:27 → EMR 19:40 → 4E 21:02 → EDBEDREQ 21:38
DX: A41.9 Sepsis, unspecified organism (principal); N39.0 Urinary tract infection, site not specified; B96.89 Other specified bacterial agents as the cause of diseases classified elsewhere; E86.0 Dehydration; J03.80 Acute tonsillitis due to other specified organisms
CPT/HCPCS: 36415; 70491; 71045; 80048; 80053; 80202; 81003; 81025; 83605; 85007; 85025; 86308; 86710; 87040; 87086; 99285; J2405